=== PATIENT | female | born 1995 | race Caucasian/White ===

== ENCOUNTER 2023-11-27 08:24 | Emergency (ER) | payer OTHER, SELFPAY ==
[2023-11-27 08:26] VITALS: BP 122/95
--- NOTE | 2023-11-27 09:03 | ED.SKININJ ---
HPI-Injury
General
Chief Complaint: Bite
Time Seen by Provider: 11/27/23 08:51
History of Present Illness-Injury
Initial Injury comments:
28-year-old female presents to the emergency department for evaluation of multiple minor wounds to the left hand and index finger sustained when she was bitten by her parents dog today. The dog is up-to-date on rabies shots. She is able to move
the index finger. Last tetanus is unknown
Review of Systems
Review of Systems
Allergies reviewed?: Yes
All Other Systems: ROS reviewed and negative except as documented in HPI and ROS
Phy Exam
Physical Exam
Physical Exam:
GEN: Well appearing, NAD, WDWN
HEENT: Oral mucosa moist, no scleral icterus
Cardiac: Regular rate
Lung: No respiratory distress, no tachypnea
MSK: No gross deformity or injuries
Skin: Good color, no pallor or jaundice. 2 small avulsion type lacerations to the left medial dorsal hand at the first and second interdigital webspace as well as the proximal phalanx of the left index finger, no active bleeding. Left index finger
range of motion is fully intact in all [place]
Neuro: AO x3, moves all extremities freely
Psych: Calm, cooperative
Course
Orders/Labs/Results
Orders:
Orders
11/27/23 09:03
Lidocaine/Epinephrine/Tetracai [Let Topical Anesthetic Gel] 3 ml TOPICAL NOW STA
11/27/23 09:05
Tetanus/Diphth/Acelpertussis [Adacel] 0.5 ml IM .ONCE ONE
Vital Signs
Initial and Last Documented VS:
Initial Vital Signs
Temp Pulse Resp BP Pulse Ox
97.7 F 78 16 122/95 95
11/27/23 08:26 11/27/23 08:26 11/27/23 08:26 11/27/23 08:26 11/27/23 08:26
Last Documented Vital Signs
Temp Pulse Resp BP Pulse Ox
97.7 F 78 16 123/92 100
11/27/23 08:26 11/27/23 08:26 11/27/23 08:26 11/27/23 10:04 11/27/23 10:04
MDM/Problems Addressed
MDM/Problems Addressed:
No need for primary copiously and the patient with Augmentin. Tetanus updated
*Critical Care Note
Total Time (30-74mins, 75-104mins- exclusive of procedures): Not Applicable
ED Attending Note
-
Portions of this chart may have been created with voice recognition software.� Occasional wrong word or��sound alike� substitutions may have occurred due to the inherent limitations of voice recognition software.
Discharge Plan
Departure
Patient Disposition: Home (Routine Discharge)
Date of Disposition: 11/27/23
Time of Disposition: 09:50
Patient with high blood pressure during this ER visit?: No
Discharge Problem:
Dog bite of left hand
Instructions: Animal Bites (DC)
Prescriptions:
New
amoxicillin-pot clavulanate 875-125 mg tablet
1 tab PO BID 5 Days Qty: 10 0RF
Referrals:
Nadia Milan MD [Family Provider] -
Interventions
Interventions:
*Risk Screen - Suicide Last Done: 11/27/23 09:47
*General Assessment Last Done: 11/27/23 09:47
*Neglect/Abuse Screening Last Done: 11/27/23 09:47
ED- Fall Risk Assessment Last Done: 11/27/23 09:47
*ED COVID-19 Vaccine History Last Done: 11/27/23 09:47
*Nursing Disposition Last Done: 11/27/23 10:05
ED-Skin Assessment Last Done: 11/27/23 09:47
Discharge Date and Time
Discharge Date/Time: 11/27/23 10:05
Print Language: [id number]
[2023-11-27] MEDS: LET TOPICAL ANESTHETIC GEL 3 ML TOPICAL (09:31)
[2023-11-27] MEDS: ADACEL 0.5 ML IM (09:32)
[2023-11-27 10:04] VITALS: BP 123/92
== END 2023-11-27 10:05 | disposition home or self-care (01) ==
LOC: EMR 08:24
PROVIDERS: EMERGENCY PHYSICIAN Emergency Medicine; FAMILY PHYSICIAN Family Medicine
DX: S61.452A Open bite of left hand, initial encounter (principal); W54.0XXA Bitten by dog, initial encounter; Z23 Encounter for immunization
CPT/HCPCS: 99283; 90471; 90715